=== PATIENT | female | born 1990 | race African-American/Black ===

== ENCOUNTER 2025-03-21 11:19 | Inpatient (IN) | payer BC, MEDICAID, OTHER ==
[~2025-03-21] VITALS: Ht 165.1 cm; Wt 98.5 kg
[2025-03-21 12:01] VITALS: O2SAT 100
[2025-03-21] MEDS: CHLORDIAZEPOXIDE 25MG CAPSULE PO ONE (12:34)
[2025-03-21] MEDS: ONDANSETRON HCL 4MG/2ML INJ IV ONE (12:34)
[2025-03-21] MEDS: LORAZEPAM 2MG/ML UD SYRINGE IV NR (12:34)
[2025-03-21] MEDS: SODIUM CHLORIDE 0.9% 1,000 ML IV ONE ×2 (12:35→14:00)
[2025-03-21 13:13] LABS: BASOPHILS % 2.0 % (0.0-2.0); EOSINOPHILS % 1.2 % (0.0-5.0); HEMATOCRIT. 36.1 % (36.0-48.0); HEMOGLOBIN. 11.3 g/dL (12.0-16.0); LYMPHOCYTES % 35.3 % (20.0-50.0); MEAN PLATELET VOLUME 7.5 fl (7.4-10.4); MONOCYTES % 8.4 % (2.0-8.0); NEUTROPHILS % 53.1 % (40.0-76.0); PLATELET 356 x1000/uL (130-400); RED BLOOD CELL COUNT 4.64 mill/uL (4.2-5.4); RED CELL DISTRIBUTION WIDTH 17.9 % (11.6-14.6)
[2025-03-21 13:24] LABS: INR 0.9
[2025-03-21 13:26] LABS: CREATININE 0.9 mg/dL (0.6-1.0)
[2025-03-21 13:27] LABS: TROPONIN I HIGH SENSITIVITY < 4 ng/L (3.0-34); UREA NITROGEN BLOOD 10 mg/dL (9-23)
[2025-03-21 13:28] LABS: ASPARTATE AMINOTRANSFERASE 20 IU/L (<34); BILIRUBIN DIRECT < 0.1 mg/dL (<=3.0)
[2025-03-21 13:29] LABS: BILIRUBIN TOTAL 0.2 mg/dL (0.1-1.0); PROTEIN TOTAL 8.0 g/dL (6.0-8.3)
[2025-03-21] MEDS ORDERED: CLONIDINE 0.1MG TABLET PO PRN (13:45)
[2025-03-21] MEDS ORDERED: LORAZEPAM 2MG/ML UD SYRINGE IV PRN (13:45)
[2025-03-21] MEDS ORDERED: DOCUSATE SODIUM 100MG CAPSULE PO PRN (13:45)
[2025-03-21] MEDS ORDERED: GUAIFENESIN 200MG/10ML SUGAR FREE UDC PO PRN (13:45)
[2025-03-21] MEDS ORDERED: IPRATROPIUM/ALBUTEROL 0.5-3(2.5)MG/3ML NEB HHN PRN (13:45)
[2025-03-21] MEDS ORDERED: ACETAMINOPHEN 325MG TABLET PO PRN ×2 (13:45)
[2025-03-21] MEDS: CHLORDIAZEPOXIDE 25MG CAPSULE PO SCH (13:45)
[2025-03-21] MEDS ORDERED: ONDANSETRON HCL 4MG/2ML INJ IV PRN (13:45)
[2025-03-21 14:51] LABS: PHOSPHORUS 2.5 mg/dL (2.5-4.9)
[2025-03-21] MEDS: PANTOPRAZOLE SODIUM 40 MG/VIAL IV SCH (15:42)
[2025-03-21 15:45] LABS: TROPONIN I HIGH SENSITIVITY < 4 ng/L (3.0-34)
[2025-03-21 15:48] LABS: FOLIC ACID (FOLATE) SERUM 18.10 ng/mL (>5.38)
[2025-03-21 15:52] LABS: VITAMIN B12 SERUM 538 pg/mL (211-911)
[2025-03-21] MEDS: FOLIC ACID 1 MG, THIAMINE HCL 100 MG, MVI, ADULT NO.1 10 ML in DEXTROSE 5% WATER 1,000 ML IV ONE (16:15)
[2025-03-21] MEDS ORDERED: DEXTROSE 50% WATER 50ML SYRINGE IV PRN (16:45)
[2025-03-21 20:00] VITALS: BP 117/81; PULSE 106; RESP 19; TEMP 36.4; O2SAT 98
[2025-03-21] MEDS: BLOOD SUGAR DIAGNOSTIC STRIP TEST SCH (20:15)
[2025-03-21] MEDS: SUCRALFATE 1G TABLET PO SCH (23:56)
[2025-03-21] MEDS: SODIUM CHLORIDE 0.45% 1,000 ML IV SCH (23:56)
[2025-03-22] VITALS (7 sets, daily range): BP systolic 129–146; BP diastolic 83–101; PULSE 79–103; RESP 18–20; TEMP 35.7–36.4; O2SAT 98–100
[2025-03-22] MEDS ORDERED: PROP10TA10 PO (02:46)
[2025-03-22] MEDS ORDERED: BUSP5TAB3 PO (02:46)
[2025-03-22] MEDS ORDERED: TRAZ300T11 PO (02:46)
[2025-03-22] MEDS ORDERED: HYDR50TA54 PO (02:46)
[2025-03-22] MEDS ORDERED: BREX1TAB PO (02:46)
[2025-03-22 06:00] LABS: CLARITY URINE CLOUDY (CLEAR); COLOR URINE YELLOW (YELLOW); GLUCOSE URINE NEGATIVE (NEGATIVE); KETONES URINE NEGATIVE (NEGATIVE); LEUKOCYTE ESTERASE URINE 1+ (NEGATIVE); NITRITE URINE NEGATIVE (NEGATIVE); OCCULT BLOOD URINE NEGATIVE (NEGATIVE); PH URINE 6.0 (4.5-8.0); PROTEIN URINE TRACE (NEGATIVE); SPECIFIC GRAVITY URINE 1.024 (1.005-1.030); UROBILINOGEN URINE 1.0 E.U./dL (0.2-1.0)
[2025-03-22 06:30] LABS: *AMPHETAMINES SCREEN URINE NEGATIVE (NEGATIVE); *BARBITURATES SCREEN URINE NEGATIVE (NEGATIVE); *BENZODIAZEPINES SCREEN URINE PRESUMPTIVE POSITIVE (NEGATIVE)
[2025-03-22 06:31] LABS: *COCAINE SCREEN URINE NEGATIVE (NEGATIVE); CANNABINOID URINE SCREEN NEGATIVE (NEGATIVE); ECSTASY MDMA SCREEN URINE NEGATIVE (NEGATIVE); METHADONE URINE SCREEN NEGATIVE (NEGATIVE); OPIATES URINE SCREEN NEGATIVE (NEGATIVE); PHENCYCLIDINE URINE SCREEN NEGATIVE (NEGATIVE)
[2025-03-22 07:27] LABS: RBC URINE 0-2 /hpf (0-2); SQUAMOUS EPITHELIAL CELL URINE 2+ /lpf (RARE/1+)
[2025-03-22 07:28] LABS: BACTERIA URINE TRACE
[2025-03-22] MEDS: MULTIVITAMINS,THER W-MINERALS TABLET PO SCH (09:17)
[2025-03-22] MEDS: FOLIC ACID 1MG TABLET PO SCH (09:18)
[2025-03-22] MEDS: THIAMINE HCL 100 MG/1 ML 2ML VIAL IM SCH (09:18)
[2025-03-22 10:52] LABS: BASOPHILS % 1.1 % (0.0-2.0); EOSINOPHILS % 1.8 % (0.0-5.0); HEMATOCRIT. 33.8 % (36.0-48.0); HEMOGLOBIN. 10.5 g/dL (12.0-16.0); LYMPHOCYTES % 25.6 % (20.0-50.0); MEAN PLATELET VOLUME 7.7 fl (7.4-10.4); MONOCYTES % 9.8 % (2.0-8.0); NEUTROPHILS % 61.7 % (40.0-76.0); PLATELET 273 x1000/uL (130-400); RED BLOOD CELL COUNT 4.26 mill/uL (4.2-5.4); RED CELL DISTRIBUTION WIDTH 17.9 % (11.6-14.6)
[2025-03-22 11:13] LABS: CREATININE 0.7 mg/dL (0.6-1.0); TRIGLYCERIDE 114 mg/dL (0-150); UREA NITROGEN BLOOD 8 mg/dL (9-23)
[2025-03-22 11:14] LABS: LDL CHOLESTEROL 100 mg/dL (5-100)
[2025-03-22 11:15] LABS: ASPARTATE AMINOTRANSFERASE 19 IU/L (<34); BILIRUBIN DIRECT 0.2 mg/dL (<=3.0); BILIRUBIN TOTAL 0.6 mg/dL (0.1-1.0); PROTEIN TOTAL 6.9 g/dL (6.0-8.3)
[2025-03-22 11:17] LABS: T4 FREE 0.97 ng/dL (0.89-1.76)
[2025-03-22] MEDS: CHLORDIAZEPOXIDE 25MG CAPSULE PO SCH (18:02)
[2025-03-23] VITALS: BP 147/72; PULSE 73; RESP 21; TEMP 36.4; O2SAT 99
[2025-03-23] MEDS: HYDROXYZINE 25MG TABLET PO PRN (00:43)
[2025-03-23 04:11] VITALS: BP 133/78; PULSE 84; RESP 18; TEMP 36.7; O2SAT 100
[2025-03-23 08:00] VITALS: BP 130/88; PULSE 105; RESP 20; TEMP 36.3; O2SAT 96
[2025-03-24] MEDS ORDERED: THIAMINE HCL 100MG TABLET PO SCH (09:00)
== END 2025-03-23 14:09 | disposition left against medical advice (07) | DRG 377 ==
LOC: ER 11:19 → EDBEDREQ 13:10 → EDBEDREQTM 13:10 → 7WST 17:24
PROVIDERS: ADMIT Internal Medicine; ATTEND Internal Medicine
DX: K29.21 Alcoholic gastritis with bleeding (principal); G92.8 Other toxic encephalopathy; F10.239 Alcohol dependence with withdrawal, unspecified; R65.10 Systemic inflammatory response syndrome (SIRS) of non-infectious origin without acute organ dysfunction; G47.00 Insomnia, unspecified; F10.229 Alcohol dependence with intoxication, unspecified; D50.9 Iron deficiency anemia, unspecified; R73.9 Hyperglycemia, unspecified; F32.A Depression, unspecified; F41.9 Anxiety disorder, unspecified; Z53.29 Procedure and treatment not carried out because of patient's decision for other reasons; Z79.899 Other long term (current) drug therapy; Z88.8 Allergy status to other drugs, medicaments and biological substances; Y90.8 Blood alcohol level of 240 mg/100 ml or more
CPT/HCPCS: 36415; 71045; 80048; 80061; 80076; 80305; 80320; 81003; 82550; 82607; 82728; 82746; 82962; 83036; 83540; 83550; 83735; 83930; 84100; 84439; 84443; 84484; 85025; 85044; 86850; 86900; 87077; 87186; 93005; 93970; 96361; 96365; 96375; 99285; A4606; J2060; J2405; J2470; J3411; J3490; J7030; J7070; G0480